=== PATIENT | female | born 1935 | race Caucasian/White ===

== ENCOUNTER 2019-01-22 14:26 | Observation (INO) | payer MEDICARE, MEDICAID ==
[~2019-01-22] VITALS: Ht 162.6 cm; Wt 90.9 kg
[2019-01-22 15:04] LABS: HEMOGLOBIN 10.7 g/dl (12.0-16.0); LYMPHOCYTES # (AUTO) 1.3 X10'3 (1.1-4.8); MEAN PLATELET VOLUME 10.8 FL (7.4-10.4)
[2019-01-22 15:05] LABS: BASOPHILS % (AUTO) 0.4 % (0-1); EOSINOPHILS % (AUTO) 0.4 % (0-6); HEMATOCRIT 31.7 % (35.0-45.0); LYMPHOCYTES % (AUTO) 18.4 % (21-51); MEAN CORPUSCULAR HEMOGLOBIN 29.2 PG (27.0-31.0); MEAN CORPUSCULAR HGB CONC 33.9 g/dL (33.0-36.5); MEAN CORPUSCULAR VOLUME 86.3 FL (78-98); MONOCYTES # (AUTO) 0.5 X10'3 (0-0.9); MONOCYTES % (AUTO) 7.5 % (2-12); NEUTROPHILS # (AUTO) 5.4 X10'3 (1.8-7.7); NEUTROPHILS % (AUTO) 73.3 % (42-75); PLATELET COUNT 90 X10'3 (140-440); RED BLOOD COUNT 3.67 X10'6 (4.20-5.60); RED CELL DISTRIBUTION WIDTH 13.5 % (11.5-14.5); WHITE BLOOD COUNT 7.3 X10'3 (4.5-11.0)
[2019-01-22 15:16] LABS: ALANINE AMINOTRANSFERASE 21 U/L (12-78); ALBUMIN 3.3 G/DL (3.4-5.0); ALBUMIN/GLOBULIN RATIO 0.9 (1.1-1.5); ALKALINE PHOSPHATASE 81 IU/L (46-116); ANION GAP 8 (8-16); ASPARTATE AMINO TRANSFERASE 19 U/L (10-37); BILIRUBIN,TOTAL 0.6 MG/DL (0.1-1.0); BLOOD UREA NITROGEN 13 MG/DL (7-18); BUN/CREATININE RATIO 14.6 (6.6-38.0); CALCIUM 9.2 MG/DL (8.5-10.1); CHLORIDE 103 MMOL/L (99-107); CREATININE 0.89 MG/DL (0.40-0.90); GLUCOSE 223 MG/DL (70-104); POTASSIUM 3.2 MMOL/L (3.5-5.1); SODIUM 141 MMOL/L (135-145); TOTAL CARBON DIOXIDE 30.3 MMOL/L (24-32); eGFR 61 ML/MIN
[2019-01-22 15:20] LABS: GIANT PLATELET FEW; LARGE PLATELETS MODERATE; PLATELET ESTIMATE DECREASED
[2019-01-22] MEDS ORDERED: metoclopramide 5 mg/ml inj IV ONE (15:40)
[2019-01-22] MEDS ORDERED: diphenhydrAMINE 50 mg/ml inj IV ONE (15:40)
[2019-01-22] MEDS ORDERED: normal saline 1000ML IV soln IVB ONE (15:40)
[2019-01-22] MEDS ORDERED: ketorolac tromethamine 15mg/ml inj. IV ONE (15:40)
[2019-01-22] MEDS ORDERED: iohexol 300mg/ml 100ml inj. ONE (15:43)
--- NOTE | 2019-01-22 15:48 | NUR ---
pt helped to bedside commode pt urinated approx 8 ml of urine send to lab.
[2019-01-22 15:58] LABS: CLARITY,URINE CLOUDY (Clear); COLOR,URINE YELLOW (Yellow); GLUCOSE, URINE NEGATIVE (Neg); KETONES,URINE TRACE mg/dl (Neg); LEUKOCYTE ESTERASE ,URINE LARGE (Neg); NITRITES, URINE NEGATIVE (Neg); OCCULT BLOOD,URINE LARGE (Neg); PROTEIN,URINE >=300 mg/dl (Neg); UROBILINOGEN,URINE 0.2 E.U/dL (0.2-1.0)
[2019-01-22 16:00] LABS: UA COLLECTION TYPE VOIDED
[2019-01-22 16:05] LABS: BACTERIA,URINE 2+ /HPF (Neg); MUCUS STRANDS NONE SEEN /LPF (Neg); RENAL CELLS, URINE MODERATE /HPF; SQUAMOUS EPITHELIAL CELL,UR FEW /LPF (FEW); WBC CLUMPS,URINE MANY /HPF (NEGATIVE); WBC,URINE TNTC /HPF (0-4)
--- NOTE | 2019-01-22 16:48 | NUR ---
PT BACK FROM CT
[2019-01-22] MEDS ORDERED: levoFLOXACIN-Levaquin 750MG/D5 150 ML IV ONE (16:50)
[2019-01-22] MEDS: normal saline 1000ml 1,000 ML IV SCH (16:58)
[2019-01-22] MEDS ORDERED: potassium CL 10mEq/100ml bag 100 ML IV PRN ×2 (17:00)
[2019-01-22] MEDS ORDERED: magnesium hydroxide 30ml (MOM) UD suspension PO PRN (17:00)
[2019-01-22] MEDS ORDERED: metoclopramide 5 mg/ml inj IV PRN (17:00)
[2019-01-22] MEDS ORDERED: potassium Cl 20 mEq SR tablet PO PRN (17:00)
[2019-01-22] MEDS ORDERED: magnesium Cl slow-release 64mg tablet PO PRN (17:00)
[2019-01-22] MEDS ORDERED: HYDROcodone/acetaminophen 5mg/325mg tablet PO PRN (17:00)
[2019-01-22] MEDS ORDERED: magnesium 2GM in 50ml NS 50 ML IV PRN (17:00)
[2019-01-22] MEDS ORDERED: mag hydrox/Alum hydrox/simeth 30ml oral suspension PO PRN (17:00)
[2019-01-22] MEDS ORDERED: ondansetron/PF 4mg/2ml inj IV PRN (17:00)
[2019-01-22] MEDS ORDERED: acetaminophen 325mg tablet PO PRN ×2 (17:00)
[2019-01-22] MEDS ORDERED: magnesium 4gm in 100ml NS 100 ML IV PRN (17:00)
[2019-01-22] MEDS ORDERED: morphine 4 MG/ML inj SYRINge IV ONE (17:15)
[2019-01-22] MEDS ORDERED: FURO-150 PO (18:15)
[2019-01-22] MEDS ORDERED: HYDR25TA4 PO (18:15)
[2019-01-22] MEDS ORDERED: GABA-769 PO (18:15)
[2019-01-22] MEDS ORDERED: SACU1TAB7 PO (18:15)
[2019-01-22] MEDS ORDERED: CLON-529 PO (18:15)
[2019-01-22] MEDS ORDERED: AMLO5TAB PO (18:15)
[2019-01-22] MEDS ORDERED: LANTUS SQ (18:15)
[2019-01-22] MEDS ORDERED: BENZ-16 PO (18:15)
[2019-01-22] MEDS ORDERED: MONT10TA24 PO (18:15)
[2019-01-22] MEDS ORDERED: ALBU8HFA PO (18:15)
[2019-01-22] MEDS ORDERED: POTA10CA44 PO (18:15)
[2019-01-22] MEDS ORDERED: INSU100V11 SQ (18:15)
[2019-01-22] MEDS ORDERED: FLUO20CA39 PO (18:15)
[2019-01-22] MEDS ORDERED: ROPI1TAB4 PO (18:15)
[2019-01-22] MEDS ORDERED: LOVA20TA2 PO (18:15)
[2019-01-22] MEDS ORDERED: ROFL500T7 PO (18:15)
[2019-01-22] MEDS ORDERED: METO-292 PO (18:15)
[2019-01-22] MEDS ORDERED: OXYC-150 PO (18:15)
[2019-01-22] MEDS ORDERED: PREG150C PO (18:15)
--- NOTE | 2019-01-22 18:19 | NUR ---
called the surg floor for the report.nurse in middle of report rgt now will call back.
[2019-01-22 20:00] VITALS: BP 186/76
[2019-01-22] MEDS ORDERED: dextrose 50%-water 50ml dispensing syringe IV PRN ×2 (20:25)
[2019-01-22] MEDS ORDERED: dextrose ORAL solution 15 GM/59 ML bottle PO PRN ×2 (20:25)
[2019-01-22] MEDS ORDERED: insulin Lispro (HumaLOG) vial - multi-dose SQ SCH (20:25)
[2019-01-22] MEDS ORDERED: oxyCODONE/APAP 10/325mg tablet PO PRN (20:25)
[2019-01-22] MEDS ORDERED: ipratropium/albuterol 3ml nebule NEB PRN (20:25)
[2019-01-22] MEDS ORDERED: benzonatate 100mg capsule PO PRN (20:25)
[2019-01-22] MEDS ORDERED: HYDROmorphone 1 mg/ml syringe IV PRN (20:25)
[2019-01-22] MEDS ORDERED: LORazepam 2 mg/ml vial IV ONE (20:25)
[2019-01-22] MEDS ORDERED: glucagon, human recombinant 1mg kit SUBCUT PRN (20:25)
[2019-01-22] MEDS ORDERED: MESSAGE TO PHARMACY PO ONE (20:25)
[2019-01-22] MEDS: pregabalin 75mg capsule PO SCH (20:57)
[2019-01-22] MEDS: metoclopramide 10mg tablet PO SCH (20:57)
[2019-01-22] MEDS: HYDROcodone/acetaminophen 10/325mg tab PO PRN (20:57)
[2019-01-22] MEDS ORDERED: cloNIDine 0.1 mg tablet PO SCH (21:00)
[2019-01-22] MEDS ORDERED: ROPINIRole 1mg tablet PO SCH (21:00)
[2019-01-22] MEDS ORDERED: montelukast 10mg tablet PO SCH (21:00)
[2019-01-22] MEDS ORDERED: LOVASTATIN PO SCH (21:00)
[2019-01-22] MEDS ORDERED: temazepam 15mg capsule PO PRN (21:00)
[2019-01-22] MEDS ORDERED: atorvastatin 10mg tablet PO SCH (21:00)
[2019-01-22] MEDS ORDERED: non-formulary drug (Pregabalin (Lyrica) 1 CAP) PO SCH (21:00)
[2019-01-22] MEDS ORDERED: insulin glargine (Lantus) pen - multi-dose SQ SCH ×2 (21:00)
[2019-01-22 21:50] LABS: HEMOGLOBIN A1C 7.7 % (4.5-6.2)
[2019-01-22] MEDS: ipratropium/albuterol 3ml nebule NEB SCH (22:49)
--- NOTE | 2019-01-22 23:30 | NUR ---
Patient in room [facility] 359. I have received report from AIDAN Huynh RN and had the opportunity to ask questions and assume patient care. Addendum: 01/22/19 at 2330 by Rebekah Sood RN Amended: Links added.
[2019-01-23] VITALS: BP 120/51
[2019-01-23] MEDS: normal saline 1000ml 1,000 ML IV SCH (02:58)
[2019-01-23] MEDS: HYDROcodone/acetaminophen 10/325mg tab PO PRN ×2 (06:05→15:35)
--- NOTE | 2019-01-23 06:27 | NUR ---
Problems reprioritized. Patient report given, questions answered & plan of care reviewed with BILLY Avendano. Addendum: 01/23/19 at 0628 by Rebekah Sood RN Amended: Links added.
[2019-01-23 06:31] LABS: ALBUMIN 2.6 G/DL (3.4-5.0); ANION GAP 7 (8-16); BLOOD UREA NITROGEN 10 MG/DL (7-18); BUN/CREATININE RATIO 10.6 (6.6-38.0); CHLORIDE 108 MMOL/L (99-107); CREATININE 0.94 MG/DL (0.40-0.90); GLUCOSE 181 MG/DL (70-104); MAGNESIUM 1.4 MG/DL (1.5-2.4); POTASSIUM 3.1 MMOL/L (3.5-5.1); SODIUM 145 MMOL/L (135-145); TOTAL CARBON DIOXIDE 30.3 MMOL/L (24-32); eGFR 57 ML/MIN
[2019-01-23 06:32] LABS: EOSINOPHILS # (AUTO) 0.1 X10'3 (0-0.9); LYMPHOCYTES # (AUTO) 1.1 X10'3 (1.1-4.8); MEAN CORPUSCULAR HEMOGLOBIN 29.8 PG (27.0-31.0); MONOCYTES # (AUTO) 0.5 X10'3 (0-0.9); NEUTROPHILS # (AUTO) 2.7 X10'3 (1.8-7.7); RED CELL DISTRIBUTION WIDTH 13.4 % (11.5-14.5)
[2019-01-23 06:35] LABS: BASOPHILS % (AUTO) 0.9 % (0-1); HEMATOCRIT 26.8 % (35.0-45.0); HEMOGLOBIN 9.3 g/dl (12.0-16.0); LYMPHOCYTES % (AUTO) 24.1 % (21-51); MEAN CORPUSCULAR HGB CONC 34.6 g/dL (33.0-36.5); MEAN CORPUSCULAR VOLUME 86.1 FL (78-98); MEAN PLATELET VOLUME 11.4 FL (7.4-10.4); MONOCYTES % (AUTO) 11.1 % (2-12); NEUTROPHILS % (AUTO) 61.9 % (42-75); PLATELET COUNT 67 X10'3 (140-440); RED BLOOD COUNT 3.11 X10'6 (4.20-5.60); WHITE BLOOD COUNT 4.4 X10'3 (4.5-11.0)
[2019-01-23] MEDS: metoclopramide 10mg tablet PO SCH ×3 (07:18→16:33)
[2019-01-23] MEDS: pregabalin 75mg capsule PO SCH ×2 (07:18→12:09)
[2019-01-23 07:20] VITALS: BP 126/90
[2019-01-23] MEDS: potassium Cl 20 mEq SR tablet PO PRN ×3 (07:24→16:33)
[2019-01-23] MEDS: ipratropium/albuterol 3ml nebule NEB SCH ×3 (07:31→15:52)
[2019-01-23 07:37] LABS: LARGE PLATELETS FEW; PLATELET ESTIMATE DECREASED
[2019-01-23] MEDS ORDERED: K and/or MAG REPLACEMENT MC SCH (08:00)
[2019-01-23] MEDS ORDERED: amLODIPine 5mg tablet PO SCH (08:00)
[2019-01-23] MEDS ORDERED: roflumilast 500mcg tablet PO SCH (08:00)
[2019-01-23] MEDS ORDERED: non-formulary drug (Amlodipine Besylate 1 TABLET) PO SCH (08:00)
[2019-01-23] MEDS ORDERED: FLUoxetine 20mg capsule PO SCH (08:00)
[2019-01-23] MEDS ORDERED: sacubitril/valsartan 24mg-26mg tablet PO SCH (08:00)
[2019-01-23] MEDS ORDERED: non-formulary drug (Roflumilast (Daliresp) 1 TAB) PO SCH (08:00)
[2019-01-23] MEDS ORDERED: enoxaparin 40mg/0.4ml syringe SQ SCH (08:00)
[2019-01-23] MEDS ORDERED: levoFLOXACIN-Levaquin 500mg/D5 100 ML IV SCH (08:00)
[2019-01-23] MEDS ORDERED: potassium chloride 10mEq CAPSULE.SA PO SCH (08:00)
[2019-01-23] MEDS ORDERED: furosemide 20MG tablet PO SCH (08:00)
[2019-01-23 11:16] VITALS: BP 162/68
--- NOTE | 2019-01-23 12:04 | NUR ---
DM Consult: Pt admit w/ N/V and abdominal pain 3 days. Hx R hip pain and chronic pain syndrome. Pending R hip testing at this time. Hx T2DM A1C 7.7. Pt GI symptoms persist either UTI vs R hip pain per MD note. Pt will need DM ed once more appropriate prior to d/c as well as advancement to carb controlled diet from regular pending PO hx. Addendum: 01/23/19 at [address] Amended: Links added.
[2019-01-23] MEDS ORDERED: LORazepam 2 mg/ml vial IV ONE (14:15)
[2019-01-23] MEDS ORDERED: potassium chloride 10mEq ER tablet PO SCH (14:35)
[2019-01-23] MEDS ORDERED: LEVO250T58 PO (16:47)
[2019-01-23] MEDS ORDERED: OXYC-150 PO (16:47)
--- NOTE | 2019-01-23 17:30 | NUR ---
Patient discharged home. Stable and appropriate. All belongings taken from room. IV removed, template checker removed. Discharge instructions given and reviewed with patient and daughter. Prescription given to patient.
[2019-01-23] MEDS ORDERED: lactobacillus rhamnosus 10,000 MMU CELLS/CAPSULE PO SCH (20:00)
== END 2019-01-23 17:24 | disposition home health service (06) ==
LOC: ER 14:26 → SUR 3N 17:24
PROVIDERS: ADMIT Family Medicine; ATTEND Family Medicine
DX: M25.551 Pain in right hip (principal); E87.6 Hypokalemia; I11.0 Hypertensive heart disease with heart failure; I50.9 Heart failure, unspecified; E78.5 Hyperlipidemia, unspecified; J44.9 Chronic obstructive pulmonary disease, unspecified; F40.240 Claustrophobia; R01.1 Cardiac murmur, unspecified; K57.30 Diverticulosis of large intestine without perforation or abscess without bleeding; D64.9 Anemia, unspecified; M54.5 Low back pain; E11.9 Type 2 diabetes mellitus without complications; Z87.891 Personal history of nicotine dependence
CPT/HCPCS: 36415; 72148; 73700; 74177; 80048; 80053; 81001; 82948; 83036; 83735; 85025; 85610; 87081; 87088; 94640; 94760; 96361; 96365; 96366; 96372; 96375; 96376; 97116; 97161; 97530; 99284; G0378; J1200; J1815; J1885; J1956; J2060; J2270; J2765; J7030; Q9967; J1650; J8597

== ENCOUNTER 2019-04-22 12:00 | Inpatient (IN) | payer MEDICARE, MEDICAID ==
[~2019-04-22] VITALS: Ht 162.6 cm; Wt 94.7 kg
[~2019-04-22 12:00] MED LIST: ALBU8HFA PO; AMLO5TAB PO; BENZ-16 PO; CLON-529 PO; FLUO20CA39 PO; FURO-150 PO; GABA-769 PO; HYDR25TA4 PO; INSU100V11 SQ; LANTUS SQ; LOVA20TA2 PO; METO-292 PO; MONT10TA24 PO; OXYC-150 PO; POTA10CA44 PO; PREG150C PO; ROFL500T7 PO; ROPI1TAB4 PO; SACU1TAB7 PO
[2019-04-22 12:57] LABS: EOSINOPHILS % (AUTO) 0.3 % (0-6); HEMOGLOBIN 10.5 g/dl (12.0-16.0); MONOCYTES # (AUTO) 0.6 X10'3 (0-0.9); NEUTROPHILS # (AUTO) 8.8 X10'3 (1.8-7.7); RED CELL DISTRIBUTION WIDTH 13.5 % (11.5-14.5)
[2019-04-22 12:58] LABS: BASOPHILS % (AUTO) 0.1 % (0-1); HEMATOCRIT 30.5 % (35.0-45.0); LYMPHOCYTES # (AUTO) 1.5 X10'3 (1.1-4.8); LYMPHOCYTES % (AUTO) 13.4 % (21-51); MEAN CORPUSCULAR HEMOGLOBIN 29.9 PG (27.0-31.0); MEAN CORPUSCULAR HGB CONC 34.4 g/dL (33.0-36.5); MEAN CORPUSCULAR VOLUME 87.1 FL (78-98); MEAN PLATELET VOLUME 10.9 FL (7.4-10.4); MONOCYTES % (AUTO) 5.4 % (2-12); NEUTROPHILS % (AUTO) 80.8 % (42-75); PLATELET COUNT 71 X10'3 (140-440); WHITE BLOOD COUNT 10.9 X10'3 (4.5-11.0)
[2019-04-22 13:01] LABS: PARTIAL THROMBOPLASTIN TIME 40 SECONDS (22-32)
[2019-04-22 13:05] LABS: ALANINE AMINOTRANSFERASE 24 U/L (12-78); ALBUMIN 3.1 G/DL (3.4-5.0); ALBUMIN/GLOBULIN RATIO 0.7 (1.1-1.5); ALKALINE PHOSPHATASE 109 IU/L (46-116); ANION GAP 11 (8-16); ASPARTATE AMINO TRANSFERASE 34 U/L (10-37); BILIRUBIN,TOTAL 0.6 MG/DL (0.1-1.0); BLOOD UREA NITROGEN 32 MG/DL (7-18); BUN/CREATININE RATIO 23.7 (6.6-38.0); CALCIUM 9.5 MG/DL (8.5-10.1); CHLORIDE 100 MMOL/L (99-107); CREATININE 1.35 MG/DL (0.40-0.90); GLUCOSE 174 MG/DL (70-104); POTASSIUM 3.4 MMOL/L (3.5-5.1); SODIUM 140 MMOL/L (135-145); TOTAL CARBON DIOXIDE 28.7 MMOL/L (24-32); TOTAL PROTEIN 7.7 G/DL (6.4-8.2); eGFR 38 ML/MIN
[2019-04-22 13:13] LABS: TOTAL CELLS COUNTED 100
[2019-04-22 13:14] LABS: LARGE PLATELETS FEW; PLATELET ESTIMATE DECREASED
[2019-04-22] MEDS ORDERED: furosemide 10 MG/1 ML 10ml inj IV ONE (13:20)
[2019-04-22] MEDS ORDERED: CefTRIAXone/D5W-Rocephin 1gm 50 ML IV ONE (13:30)
[2019-04-22] MEDS ORDERED: azithromycin/NS 500mg/250ml 250 ML IV ONE (13:30)
[2019-04-22] MEDS ORDERED: morphine 2 MG/ML inj. syringe IV PRN ×2 (13:45)
[2019-04-22] MEDS: furosemide 20 MG/2 ML vial IV SCH ×2 (13:45→23:11)
[2019-04-22] MEDS ORDERED: acetaminophen 325mg tablet PO PRN ×2 (13:45)
[2019-04-22] MEDS ORDERED: mag hydrox/Alum hydrox/simeth 30ml oral suspension PO PRN (13:45)
[2019-04-22] MEDS ORDERED: ondansetron/PF 4mg/2ml inj IV PRN (13:45)
[2019-04-22] MEDS ORDERED: magnesium hydroxide 30ml (MOM) UD suspension PO PRN (13:45)
--- NOTE | 2019-04-22 13:59 | NUR ---
MICHAEL: GRANDDAUGHTER: CELL: [phone] HOME: [phone]
[2019-04-22 14:15] LABS: CLARITY,URINE CLEAR (Clear); COLOR,URINE YELLOW (Yellow); GLUCOSE, URINE NEGATIVE (Neg); KETONES,URINE NEGATIVE (Neg); LEUKOCYTE ESTERASE ,URINE NEGATIVE (Neg); NITRITES, URINE NEGATIVE (Neg); OCCULT BLOOD,URINE MODERATE (Neg); PH,URINE 5.5 (4.8-8.0); PROTEIN,URINE NEGATIVE (Neg); UROBILINOGEN,URINE 0.2 E.U/dL (0.2-1.0)
[2019-04-22 14:23] LABS: BACTERIA,URINE NONE SEEN /HPF (Neg); MUCUS STRANDS NONE SEEN /LPF (Neg); RBC,URINE 0-2 /HPF (0-2); SQUAMOUS EPITHELIAL CELL,UR NONE SEEN /LPF (FEW); UA COLLECTION TYPE CLN CATCH MIDSTREAM; WBC,URINE 0-4 /HPF (0-4)
--- NOTE | 2019-04-22 14:30 | NUR ---
Patient in room PCU 3025. I have received report from Dania CERVANTES and had the opportunity to ask questions and assume patient care.
[2019-04-22] MEDS: HYDROcodone/acetaminophen 5mg/325mg tablet PO PRN ×2 (15:43→23:07)
[2019-04-22 18:00] VITALS: BP 148/58
--- NOTE | 2019-04-22 18:13 | NUR ---
Pt. c/o SOB, heaviness in chest. Also stated that she has hx of DM2. Pagejailyn ARCE PAGER ID: [phone] MESSAGE: [id number] Kee Espinal admit from ED. C/o SOB, heaviness in chest. Hx of DM2. No orders for Breathing tx or Hyperglycemia protocol. Pls. advise. Laci [id number]
[2019-04-22 18:50] VITALS: BP 159/56
--- NOTE | 2019-04-22 19:01 | NUR ---
Patient in room PCU 9614J. I have received report from BILLY Escobar and had the opportunity to ask questions and assume patient care. Patient denies CP, n/v, dizzines, and rated pain 5/10. Medication reconciliation needs to be done.
--- NOTE | 2019-04-22 19:01 | NUR ---
Problems reprioritized. Patient report given, questions answered & plan of care reviewed with Jean Carlos CERVANTES.
--- NOTE | 2019-04-22 20:31 | NUR ---
PAGER ID: [phone] MESSAGE: FYEvan: America Espinal, Room 325A. Medication Reconciliation is done. The patient is also requesting an insomnia medication and a nasal spray. Thank you, Jean Carlos
[2019-04-22] MEDS ORDERED: dextrose ORAL solution 15 GM/59 ML bottle PO PRN ×2 (20:50)
[2019-04-22] MEDS ORDERED: dextrose 50%-water 50ml dispensing syringe IV PRN ×2 (20:50)
[2019-04-22] MEDS ORDERED: MESSAGE TO PHARMACY PO ONE (20:50)
[2019-04-22] MEDS ORDERED: glucagon, human recombinant 1mg kit SUBCUT PRN (20:50)
[2019-04-22 22:00] VITALS: BP 140/41
[2019-04-22 22:35] LABS: HEMOGLOBIN A1C 6.8 % (4.5-6.2)
[2019-04-22] MEDS: ROPINIRole 1mg tablet PO SCH (23:04)
[2019-04-22] MEDS: cloNIDine 0.1 mg tablet PO SCH (23:05)
[2019-04-22] MEDS: metoclopramide 10mg tablet PO SCH (23:05)
[2019-04-22] MEDS: Melatonin 3mg tablet PO SCH (23:05)
[2019-04-22] MEDS: oxymetazoline 15 ML nasal spray NS SCH (23:10)
[2019-04-22] MEDS: insulin glargine (Lantus) pen - multi-dose SQ SCH (23:33)
[2019-04-23] VITALS (10 sets, daily range): BP systolic 114–174; BP diastolic 38–61
--- NOTE | 2019-04-23 00:43 | NUR ---
Per Iram in pharmacy, via Fax: " Please check if the patient's family can bring in the patient's own medication. If not please have the physician discontinue own medication order. It's considered a med error every time the medication is not given." Patient will ask her daughter today to bring gabapentin enacarbil and sacubitril/valsartan.
--- NOTE | 2019-04-23 06:47 | NUR ---
Patient in room PCU 3025. I have received report from BILLY Evangelista and had the opportunity to ask questions and assume patient care.
--- NOTE | 2019-04-23 06:47 | NUR ---
Problems reprioritized. Patient report given, questions answered & plan of care reviewed with BILLY Andrews. Patient stable at shift change.
[2019-04-23] MEDS: nystatin 15 GM powder TP SCH ×2 (07:54→20:00)
[2019-04-23] MEDS: amLODIPine 5mg tablet PO SCH (07:54)
[2019-04-23] MEDS: furosemide 20 MG/2 ML vial IV SCH ×2 (07:54→19:59)
[2019-04-23] MEDS: azithromycin 250mg tablet PO SCH (07:55)
[2019-04-23] MEDS: metoclopramide 10mg tablet PO SCH ×4 (07:55→21:18)
[2019-04-23] MEDS: CefTRIAXone/D5W-Rocephin 1gm 50 ML IV SCH (07:55)
[2019-04-23] MEDS: potassium chloride 10mEq ER tablet PO SCH (07:56)
[2019-04-23] MEDS: pregabalin 75mg capsule PO SCH ×3 (07:56→21:18)
[2019-04-23] MEDS: FLUoxetine 20mg capsule PO SCH (07:56)
[2019-04-23] MEDS: roflumilast 500mcg tablet PO SCH (07:57)
[2019-04-23] MEDS: oxymetazoline 15 ML nasal spray NS SCH ×2 (07:57→20:16)
[2019-04-23] MEDS: enoxaparin 40mg/0.4ml syringe SUBCUT SCH (07:58)
[2019-04-23] MEDS ORDERED: sacubitril/valsartan 49mg-51mg tablet PO SCH (08:00)
--- NOTE | 2019-04-23 08:55 | NUR ---
Pt c/o SOB and history PAGER ID: [phone] MESSAGE: [id number] Kee Espinal C/o SOB and hx of asthma, pt would like breathing txs, none ordered. Please advise. Humaira [id number] Addendum: 04/23/19 at 0857 by Deirdre Morton RN received return call, order received for RT eval/tx. Addendum: 04/23/19 at 0859 by Deirdre Morton RN Notified respiratory via page of new order for Eval/Tx.
--- NOTE | 2019-04-23 11:20 | NUR ---
Dr. Thompson at bedside. New orders received.
[2019-04-23] MEDS: oxyCODONE/APAP 10/325mg tablet PO PRN ×2 (11:56→20:02)
[2019-04-23] MEDS: ipratropium/albuterol 3ml nebule NEB SCH ×3 (12:00→19:39)
[2019-04-23 13:03] LABS: BASOPHILS % (AUTO) 0.2 % (0-1); EOSINOPHILS % (AUTO) 0.8 % (0-6); HEMATOCRIT 27.8 % (35.0-45.0); HEMOGLOBIN 9.6 g/dl (12.0-16.0); LYMPHOCYTES # (AUTO) 1.2 X10'3 (1.1-4.8); MEAN CORPUSCULAR HEMOGLOBIN 29.9 PG (27.0-31.0); MONOCYTES # (AUTO) 0.4 X10'3 (0-0.9); RED BLOOD COUNT 3.22 X10'6 (4.20-5.60); RED CELL DISTRIBUTION WIDTH 13.5 % (11.5-14.5)
[2019-04-23 13:04] LABS: EOSINOPHILS # (AUTO) 0.1 X10'3 (0-0.9); LYMPHOCYTES % (AUTO) 18.5 % (21-51); MEAN CORPUSCULAR HGB CONC 34.5 g/dL (33.0-36.5); MEAN CORPUSCULAR VOLUME 86.6 FL (78-98); MEAN PLATELET VOLUME 10.8 FL (7.4-10.4); MONOCYTES % (AUTO) 6.3 % (2-12); NEUTROPHILS # (AUTO) 4.7 X10'3 (1.8-7.7); NEUTROPHILS % (AUTO) 74.2 % (42-75); PLATELET COUNT 68 X10'3 (140-440); WHITE BLOOD COUNT 6.3 X10'3 (4.5-11.0)
[2019-04-23 13:05] LABS: ALBUMIN 2.7 G/DL (3.4-5.0); ANION GAP 10 (8-16); BLOOD UREA NITROGEN 33 MG/DL (7-18); BUN/CREATININE RATIO 25.6 (6.6-38.0); CALCIUM 8.4 MG/DL (8.5-10.1); CHLORIDE 102 MMOL/L (99-107); CREATININE 1.29 MG/DL (0.40-0.90); GLUCOSE 200 MG/DL (70-104); SODIUM 143 MMOL/L (135-145); TOTAL CARBON DIOXIDE 30.7 MMOL/L (24-32); eGFR 40 ML/MIN
--- NOTE | 2019-04-23 13:15 | NUR ---
Critical K 3.[address] Thompson notified, order received to replace per protocol.
[2019-04-23] MEDS ORDERED: potassium CL 10mEq/100ml bag 100 ML IV PRN (13:20)
[2019-04-23] MEDS ORDERED: potassium Cl 20 mEq SR tablet PO PRN (13:20)
[2019-04-23] MEDS: benzonatate 100mg capsule PO PRN (13:23)
[2019-04-23 13:27] LABS: LARGE PLATELETS FEW; PLATELET ESTIMATE DECREASED
[2019-04-23] MEDS: insulin Lispro (HumaLOG) vial - multi-dose SQ SCH ×2 (14:41→19:27)
[2019-04-23] MEDS: potassium Cl 20 mEq SR tablet PO PRN ×2 (14:42→19:59)
--- NOTE | 2019-04-23 18:15 | NUR ---
Problems reprioritized. Patient report given, questions answered & plan of care reviewed with BILLY Sandhu.
--- NOTE | 2019-04-23 18:30 | NUR ---
Patient in room PCU 3025. I have received report from Juliana CERVANTES and had the opportunity to ask questions and assume patient care.
[2019-04-23] MEDS: sacubitril/valsartan 24mg-26mg tablet PO SCH (19:34)
[2019-04-23] MEDS: methylPREDNISolone sod succ/PF 40mg inj. IV SCH (19:59)
[2019-04-23] MEDS: lactobacillus rhamnosus 10,000 MMU CELLS/CAPSULE PO SCH (20:00)
[2019-04-23] MEDS: insulin glargine (Lantus) pen - multi-dose SQ SCH (21:17)
[2019-04-23] MEDS: gabapentin 300mg capsule PO SCH (21:18)
[2019-04-23] MEDS: cloNIDine 0.1 mg tablet PO SCH (21:18)
[2019-04-23] MEDS: ROPINIRole 1mg tablet PO SCH (21:18)
[2019-04-23] MEDS: atorvastatin 10mg tablet PO SCH (21:18)
[2019-04-23] MEDS: Melatonin 3mg tablet PO SCH (21:19)
[2019-04-24] VITALS (8 sets, daily range): BP systolic 118–142; BP diastolic 41–56
[2019-04-24] MEDS: potassium Cl 20 mEq SR tablet PO PRN (00:30)
[2019-04-24 05:36] LABS: BASOPHILS % (AUTO) 0.1 % (0-1); HEMOGLOBIN 9.6 g/dl (12.0-16.0); LYMPHOCYTES # (AUTO) 0.5 X10'3 (1.1-4.8); MONOCYTES # (AUTO) 0.1 X10'3 (0-0.9); NEUTROPHILS # (AUTO) 3.2 X10'3 (1.8-7.7); NEUTROPHILS % (AUTO) 85.2 % (42-75); RED CELL DISTRIBUTION WIDTH 13.3 % (11.5-14.5); WHITE BLOOD COUNT 3.7 X10'3 (4.5-11.0)
[2019-04-24 05:40] LABS: EOSINOPHILS % (AUTO) 0.1 % (0-6); MEAN CORPUSCULAR HEMOGLOBIN 29.8 PG (27.0-31.0); MEAN CORPUSCULAR HGB CONC 34.4 g/dL (33.0-36.5); MEAN CORPUSCULAR VOLUME 86.8 FL (78-98); MEAN PLATELET VOLUME 10.8 FL (7.4-10.4); MONOCYTES % (AUTO) 1.6 % (2-12); PLATELET COUNT 69 X10'3 (140-440); RED BLOOD COUNT 3.23 X10'6 (4.20-5.60)
[2019-04-24 05:44] LABS: ALBUMIN 2.6 G/DL (3.4-5.0); ANION GAP 10 (8-16); BLOOD UREA NITROGEN 40 MG/DL (7-18); BUN/CREATININE RATIO 25.5 (6.6-38.0); CALCIUM 8.4 MG/DL (8.5-10.1); CHLORIDE 103 MMOL/L (99-107); CREATININE 1.57 MG/DL (0.40-0.90); GLUCOSE 294 MG/DL (70-104); POTASSIUM 4.7 MMOL/L (3.5-5.1); SODIUM 141 MMOL/L (135-145); TOTAL CARBON DIOXIDE 28.4 MMOL/L (24-32); eGFR 32 ML/MIN
--- NOTE | 2019-04-24 06:11 | NUR ---
Problems reprioritized. Patient report given, questions answered & plan of care reviewed with Harriet CERVANTES.
--- NOTE | 2019-04-24 06:16 | NUR ---
Patient in room PCU 3025. I have received report from BILLY Sandhu and had the opportunity to ask questions and assume patient care.
[2019-04-24] MEDS: ipratropium/albuterol 3ml nebule NEB SCH ×4 (06:48→19:24)
[2019-04-24] MEDS: CefTRIAXone/D5W-Rocephin 1gm 50 ML IV SCH (07:19)
[2019-04-24] MEDS: oxymetazoline 15 ML nasal spray NS SCH ×2 (07:28→21:04)
[2019-04-24] MEDS: nystatin 15 GM powder TP SCH ×2 (07:29→20:58)
[2019-04-24] MEDS: potassium chloride 10mEq ER tablet PO SCH (07:30)
[2019-04-24] MEDS: furosemide 20 MG/2 ML vial IV SCH ×2 (07:30→20:56)
[2019-04-24] MEDS: pantoprazole 40 MG vial IV SCH (07:30)
[2019-04-24] MEDS: roflumilast 500mcg tablet PO SCH (07:30)
[2019-04-24] MEDS: amLODIPine 5mg tablet PO SCH (07:30)
[2019-04-24] MEDS: methylPREDNISolone sod succ/PF 40mg inj. IV SCH ×2 (07:30→20:56)
[2019-04-24] MEDS: sacubitril/valsartan 24mg-26mg tablet PO SCH ×2 (07:30→20:58)
[2019-04-24] MEDS: FLUoxetine 20mg capsule PO SCH (07:31)
[2019-04-24] MEDS: metoclopramide 10mg tablet PO SCH ×4 (07:31→20:58)
[2019-04-24] MEDS: pregabalin 75mg capsule PO SCH ×3 (07:31→20:57)
[2019-04-24] MEDS: azithromycin 250mg tablet PO SCH (07:31)
[2019-04-24] MEDS: lactobacillus rhamnosus 10,000 MMU CELLS/CAPSULE PO SCH ×2 (07:31→20:57)
[2019-04-24] MEDS: enoxaparin 40mg/0.4ml syringe SUBCUT SCH (07:36)
[2019-04-24] MEDS: oxyCODONE/APAP 10/325mg tablet PO PRN ×3 (07:43→21:12)
[2019-04-24 07:49] LABS: GIANT PLATELET FEW; LARGE PLATELETS MODERATE; PLATELET ESTIMATE DECREASED
[2019-04-24] MEDS: insulin Lispro (HumaLOG) vial - multi-dose SQ SCH ×4 (09:31→21:28)
--- NOTE | 2019-04-24 18:33 | NUR ---
Patient in room PCU 3025. I have received report from Harriet CERVANTES and Addie CERVANTES and had the opportunity to ask questions and assume patient care.
--- NOTE | 2019-04-24 18:40 | NUR ---
Problems reprioritized. Patient report given, questions answered & plan of care reviewed with BILLY Gilmore.
[2019-04-24] MEDS: ROPINIRole 1mg tablet PO SCH (20:57)
[2019-04-24] MEDS: Melatonin 3mg tablet PO SCH (20:57)
[2019-04-24] MEDS: gabapentin 300mg capsule PO SCH (20:57)
[2019-04-24] MEDS: cloNIDine 0.1 mg tablet PO SCH (20:57)
[2019-04-24] MEDS: atorvastatin 10mg tablet PO SCH (20:59)
[2019-04-24] MEDS: insulin glargine (Lantus) pen - multi-dose SQ SCH (21:25)
[2019-04-25 02:00] VITALS: BP 118/38
[2019-04-25 05:01] LABS: BASOPHILS % (AUTO) 0.1 % (0-1); EOSINOPHILS % (AUTO) 0 % (0-6); LYMPHOCYTES # (AUTO) 0.5 X10'3 (1.1-4.8); MEAN CORPUSCULAR VOLUME 87.6 FL (78-98); MONOCYTES # (AUTO) 0.1 X10'3 (0-0.9); NEUTROPHILS # (AUTO) 6.5 X10'3 (1.8-7.7); PLATELET COUNT 80 X10'3 (140-440); RED BLOOD COUNT 3.04 X10'6 (4.20-5.60); WHITE BLOOD COUNT 7.2 X10'3 (4.5-11.0)
[2019-04-25 05:02] LABS: HEMATOCRIT 26.6 % (35.0-45.0); HEMOGLOBIN 9.1 g/dl (12.0-16.0); MEAN CORPUSCULAR HEMOGLOBIN 29.9 PG (27.0-31.0); MEAN CORPUSCULAR HGB CONC 34.1 g/dL (33.0-36.5); MEAN PLATELET VOLUME 11.4 FL (7.4-10.4); MONOCYTES % (AUTO) 1.5 % (2-12); NEUTROPHILS % (AUTO) 91.4 % (42-75); RED CELL DISTRIBUTION WIDTH 13.5 % (11.5-14.5)
[2019-04-25 05:06] LABS: ALBUMIN 2.5 G/DL (3.4-5.0); ANION GAP 10 (8-16); BLOOD UREA NITROGEN 60 MG/DL (7-18); BUN/CREATININE RATIO 20.9 (6.6-38.0); CALCIUM 8.8 MG/DL (8.5-10.1); CHLORIDE 99 MMOL/L (99-107); CREATININE 2.87 MG/DL (0.40-0.90); GLUCOSE 352 MG/DL (70-104); POTASSIUM 5.1 MMOL/L (3.5-5.1); SODIUM 136 MMOL/L (135-145); TOTAL CARBON DIOXIDE 27.4 MMOL/L (24-32); eGFR 16 ML/MIN
--- NOTE | 2019-04-25 06:28 | NUR ---
Patient in room PCU 3025. I have received report from Deirdre and had the opportunity to ask questions and assume patient care.
--- NOTE | 2019-04-25 06:31 | NUR ---
Problems reprioritized. Patient report given, questions answered & plan of care reviewed with Jackie CERVANTES.
[2019-04-25] MEDS: ipratropium/albuterol 3ml nebule NEB SCH ×4 (06:52→19:35)
[2019-04-25 06:54] LABS: GIANT PLATELET FEW; LARGE PLATELETS MODERATE; PLATELET ESTIMATE DECREASED
[2019-04-25 07:00] VITALS: BP 138/64
[2019-04-25] MEDS: roflumilast 500mcg tablet PO SCH (07:48)
[2019-04-25] MEDS: amLODIPine 5mg tablet PO SCH (07:48)
[2019-04-25] MEDS: FLUoxetine 20mg capsule PO SCH (07:49)
[2019-04-25] MEDS: sacubitril/valsartan 24mg-26mg tablet PO SCH ×2 (07:49→20:00)
[2019-04-25] MEDS: lactobacillus rhamnosus 10,000 MMU CELLS/CAPSULE PO SCH ×2 (07:49→20:01)
[2019-04-25] MEDS: metoclopramide 10mg tablet PO SCH ×4 (07:50→20:00)
[2019-04-25] MEDS: pregabalin 75mg capsule PO SCH ×3 (07:50→20:00)
[2019-04-25] MEDS: azithromycin 250mg tablet PO SCH (07:50)
[2019-04-25] MEDS: potassium chloride 10mEq ER tablet PO SCH (07:50)
[2019-04-25] MEDS: nystatin 15 GM powder TP SCH ×2 (07:51→20:03)
[2019-04-25] MEDS: methylPREDNISolone sod succ/PF 40mg inj. IV SCH ×2 (07:51→20:00)
[2019-04-25] MEDS: furosemide 20 MG/2 ML vial IV SCH (07:51)
[2019-04-25] MEDS: pantoprazole 40 MG vial IV SCH (07:51)
[2019-04-25] MEDS: CefTRIAXone/D5W-Rocephin 1gm 50 ML IV SCH (07:52)
[2019-04-25] MEDS: enoxaparin 30mg/0.3ml syringe SUBCUT SCH ×2 (07:52→08:00)
[2019-04-25] MEDS: oxymetazoline 15 ML nasal spray NS SCH ×2 (07:52→20:00)
[2019-04-25] MEDS: insulin Lispro (HumaLOG) vial - multi-dose SQ SCH ×3 (09:33→19:45)
[2019-04-25] MEDS: oxyCODONE/APAP 10/325mg tablet PO PRN ×2 (09:38→20:01)
[2019-04-25 11:00] VITALS: BP 137/84
--- NOTE | 2019-04-25 12:21 | NUR ---
MD notified regarding platelet count with orders to hold Lovenox. stated the patient is not discharging today and ordered to re-eval with PT r/t weakness.
[2019-04-25 18:00] VITALS: BP 142/56
--- NOTE | 2019-04-25 18:23 | NUR ---
Problems reprioritized. Patient report given, questions answered & plan of care reviewed with Deirdre.
--- NOTE | 2019-04-25 18:33 | NUR ---
Problems reprioritized. Patient report given, questions answered & plan of care reviewed with Julia
--- NOTE | 2019-04-25 19:02 | NUR ---
Patient in room PCU 3025. I have received report from Vilma CERVANTES and had the opportunity to ask questions and assume patient care.
[2019-04-25] MEDS: normal saline 1000ml 1,000 ML IV SCH (19:45)
[2019-04-25] MEDS: gabapentin 300mg capsule PO SCH (20:00)
[2019-04-25] MEDS: ROPINIRole 1mg tablet PO SCH (20:00)
[2019-04-25] MEDS: cloNIDine 0.1 mg tablet PO SCH (20:00)
[2019-04-25] MEDS: atorvastatin 10mg tablet PO SCH (20:01)
[2019-04-25] MEDS: Melatonin 3mg tablet PO SCH (20:01)
[2019-04-25] MEDS: insulin glargine (Lantus) pen - multi-dose SQ SCH (21:40)
[2019-04-25 22:00] VITALS: BP 108/42
[2019-04-26 02:00] VITALS: BP 121/46
--- NOTE | 2019-04-26 03:52 | NUR ---
Patient has not voided this shift yet and her urine on day shift in the wick canister is dark jerman so encouraged patient to drink some PO fluids and educated her about her renal function and she is compliant with trying to increase her water intake.
[2019-04-26 04:14] LABS: EOSINOPHILS % (AUTO) 0 % (0-6); HEMATOCRIT 26.8 % (35.0-45.0); HEMOGLOBIN 9.2 g/dl (12.0-16.0); MEAN CORPUSCULAR HEMOGLOBIN 29.8 PG (27.0-31.0); MONOCYTES # (AUTO) 0.1 X10'3 (0-0.9); RED BLOOD COUNT 3.08 X10'6 (4.20-5.60); WHITE BLOOD COUNT 7.6 X10'3 (4.5-11.0)
[2019-04-26 04:16] LABS: BASOPHILS % (AUTO) 0 % (0-1); LYMPHOCYTES # (AUTO) 0.4 X10'3 (1.1-4.8); LYMPHOCYTES % (AUTO) 4.7 % (21-51); MEAN CORPUSCULAR HGB CONC 34.2 g/dL (33.0-36.5); MEAN CORPUSCULAR VOLUME 87.1 FL (78-98); MEAN PLATELET VOLUME 10.6 FL (7.4-10.4); MONOCYTES % (AUTO) 1.4 % (2-12); NEUTROPHILS # (AUTO) 7.2 X10'3 (1.8-7.7); NEUTROPHILS % (AUTO) 93.9 % (42-75); PLATELET COUNT 80 X10'3 (140-440); RED CELL DISTRIBUTION WIDTH 13.4 % (11.5-14.5)
[2019-04-26 04:24] LABS: ALBUMIN 2.5 G/DL (3.4-5.0); ANION GAP 11 (8-16); BLOOD UREA NITROGEN 81 MG/DL (7-18); BUN/CREATININE RATIO 31.8 (6.6-38.0); CALCIUM 8.6 MG/DL (8.5-10.1); CHLORIDE 97 MMOL/L (99-107); CREATININE 2.55 MG/DL (0.40-0.90); GLUCOSE 275 MG/DL (70-104); POTASSIUM 4.8 MMOL/L (3.5-5.1); SODIUM 133 MMOL/L (135-145); eGFR 18 ML/MIN
--- NOTE | 2019-04-26 06:00 | NUR ---
Patient in room PCU 3025. I have received report from Deirdre and had the opportunity to ask questions and assume patient care.
[2019-04-26 07:00] VITALS: BP 145/48
[2019-04-26] MEDS: ipratropium/albuterol 3ml nebule NEB SCH ×4 (07:30→19:49)
[2019-04-26] MEDS: roflumilast 500mcg tablet PO SCH (07:55)
[2019-04-26] MEDS: pregabalin 75mg capsule PO SCH ×3 (07:56→20:40)
[2019-04-26] MEDS: metoclopramide 10mg tablet PO SCH ×4 (07:56→20:42)
[2019-04-26] MEDS: amLODIPine 5mg tablet PO SCH (07:56)
[2019-04-26] MEDS: methylPREDNISolone sod succ/PF 40mg inj. IV SCH ×2 (07:57→20:49)
[2019-04-26] MEDS: CefTRIAXone/D5W-Rocephin 1gm 50 ML IV SCH (07:57)
[2019-04-26] MEDS: sacubitril/valsartan 24mg-26mg tablet PO SCH (07:57)
[2019-04-26 08:17] LABS: LARGE PLATELETS FEW; PLATELET ESTIMATE DECREASED
[2019-04-26] MEDS: azithromycin 250mg tablet PO SCH (08:26)
[2019-04-26] MEDS: FLUoxetine 20mg capsule PO SCH (08:26)
[2019-04-26] MEDS: lactobacillus rhamnosus 10,000 MMU CELLS/CAPSULE PO SCH ×2 (08:26→20:42)
[2019-04-26] MEDS: oxyCODONE/APAP 10/325mg tablet PO PRN ×3 (08:28→20:38)
[2019-04-26] MEDS: pantoprazole 40mg Tablet.DR PO SCH (08:29)
[2019-04-26] MEDS: potassium chloride 10mEq ER tablet PO SCH (08:29)
[2019-04-26] MEDS: insulin Lispro (HumaLOG) vial - multi-dose SQ SCH ×3 (09:08→19:19)
--- NOTE | 2019-04-26 11:00 | NUR ---
Spoke with Dr. Thompson regarding reported poor urine output, fluid intake, reports of diarrhea and elevated BUN/CR levels. Patient stated she has diarrhea at home for which she takes immodium for it. ABT is being switched to oral only. CXR being ordered with an increase in the rate of IVF. Dr. Jose to consult today for kidney function. Patients urine output has been adequate for this shift thus far. Patient also ambulated with therapy and did better today than the prior day.
[2019-04-26] MEDS: nystatin 15 GM powder TP SCH ×2 (12:31→20:51)
[2019-04-26] MEDS: normal saline 1000ml 1,000 ML IV SCH ×2 (12:53→15:25)
[2019-04-26 15:00] VITALS: BP 139/60
[2019-04-26] MEDS: amox tr/potassium clavulanate 500mg/125mg TAB PO SCH (16:54)
[2019-04-26 18:30] VITALS: BP 113/54
--- NOTE | 2019-04-26 18:30 | NUR ---
Problems reprioritized. Patient report given, questions answered & plan of care reviewed with
--- NOTE | 2019-04-26 18:50 | NUR ---
Patient in room PCU 3025. I have received report from Vilma CERVANTES and had the opportunity to ask questions and assume patient care.
[2019-04-26] MEDS: benzonatate 100mg capsule PO PRN (20:39)
[2019-04-26] MEDS: gabapentin 300mg capsule PO SCH (20:41)
[2019-04-26] MEDS: Melatonin 3mg tablet PO SCH (20:41)
[2019-04-26] MEDS: atorvastatin 10mg tablet PO SCH (20:42)
[2019-04-26] MEDS: cloNIDine 0.1 mg tablet PO SCH (20:42)
[2019-04-26] MEDS: ROPINIRole 1mg tablet PO SCH (20:47)
[2019-04-26] MEDS: insulin glargine (Lantus) pen - multi-dose SQ SCH (22:16)
[2019-04-26 22:30] VITALS: BP 122/50
[2019-04-27 02:30] VITALS: BP 115/51
[2019-04-27] MEDS: normal saline 1000ml 1,000 ML IV SCH (05:15)
[2019-04-27 05:29] LABS: BASOPHILS % (AUTO) 0.1 % (0-1); EOSINOPHILS % (AUTO) 0 % (0-6); HEMOGLOBIN 10.1 g/dl (12.0-16.0); LYMPHOCYTES # (AUTO) 0.6 X10'3 (1.1-4.8); MEAN CORPUSCULAR HEMOGLOBIN 29.5 PG (27.0-31.0); MONOCYTES # (AUTO) 0.2 X10'3 (0-0.9); RED BLOOD COUNT 3.41 X10'6 (4.20-5.60)
[2019-04-27 05:32] LABS: HEMATOCRIT 29.4 % (35.0-45.0); LYMPHOCYTES % (AUTO) 6.8 % (21-51); MEAN CORPUSCULAR HGB CONC 34.2 g/dL (33.0-36.5); MEAN CORPUSCULAR VOLUME 86.1 FL (78-98); MEAN PLATELET VOLUME 10.9 FL (7.4-10.4); MONOCYTES % (AUTO) 1.7 % (2-12); NEUTROPHILS # (AUTO) 8.5 X10'3 (1.8-7.7); NEUTROPHILS % (AUTO) 91.4 % (42-75); PLATELET COUNT 110 X10'3 (140-440); RED CELL DISTRIBUTION WIDTH 13.5 % (11.5-14.5); WHITE BLOOD COUNT 9.3 X10'3 (4.5-11.0)
[2019-04-27 05:46] LABS: ALBUMIN 2.6 G/DL (3.4-5.0); ANION GAP 12 (8-16); BLOOD UREA NITROGEN 87 MG/DL (7-18); BUN/CREATININE RATIO 45.8 (6.6-38.0); CALCIUM 8.5 MG/DL (8.5-10.1); CHLORIDE 100 MMOL/L (99-107); GLUCOSE 241 MG/DL (70-104); POTASSIUM 4.8 MMOL/L (3.5-5.1); SODIUM 134 MMOL/L (135-145); TOTAL CARBON DIOXIDE 22.1 MMOL/L (24-32); eGFR 25 ML/MIN
--- NOTE | 2019-04-27 06:01 | NUR ---
Problems reprioritized. Patient report given, questions answered & plan of care reviewed with Vilma CERVANTES.
--- NOTE | 2019-04-27 06:03 | NUR ---
Patient in room PCU 3025. I have received report from Oscar and had the opportunity to ask questions and assume patient care.
[2019-04-27 06:15] LABS: PLATELET ESTIMATE DECREASED
[2019-04-27 06:16] LABS: GIANT PLATELET FEW; LARGE PLATELETS FEW
[2019-04-27 07:00] VITALS: BP 159/60
[2019-04-27] MEDS: nystatin 15 GM powder TP SCH ×2 (07:34→19:14)
[2019-04-27] MEDS: methylPREDNISolone sod succ/PF 40mg inj. IV SCH (07:34)
[2019-04-27] MEDS: amox tr/potassium clavulanate 500mg/125mg TAB PO SCH ×2 (07:34→17:24)
[2019-04-27] MEDS: FLUoxetine 20mg capsule PO SCH (07:34)
[2019-04-27] MEDS: amLODIPine 5mg tablet PO SCH (07:35)
[2019-04-27] MEDS: oxyCODONE/APAP 10/325mg tablet PO PRN ×3 (07:35→22:34)
[2019-04-27] MEDS: pantoprazole 40mg Tablet.DR PO SCH (07:35)
[2019-04-27] MEDS: lactobacillus rhamnosus 10,000 MMU CELLS/CAPSULE PO SCH ×2 (07:35→19:13)
[2019-04-27] MEDS: roflumilast 500mcg tablet PO SCH (07:35)
[2019-04-27] MEDS: metoclopramide 10mg tablet PO SCH (07:35)
[2019-04-27] MEDS: pregabalin 75mg capsule PO SCH ×3 (08:17→20:03)
[2019-04-27] MEDS: ipratropium/albuterol 3ml nebule NEB SCH ×4 (08:30→20:21)
[2019-04-27] MEDS: insulin Lispro (HumaLOG) vial - multi-dose SQ SCH ×3 (09:01→18:52)
[2019-04-27 11:00] VITALS: BP 137/52
[2019-04-27 12:44] LABS: TOTAL PROTEIN,URINE RANDOM 18.8 MG/DL
[2019-04-27 15:00] VITALS: BP 139/57
--- NOTE | 2019-04-27 16:41 | NUR ---
Initial: Pt admit w/ SOB DX community-acquired PNA, COPD, CHF, and acute renal failure per MD. Pt PO 75% avg meals PO does fluctuate but overall likely meeting needs. Good appetite given age. LBM 04/26. Na 134 receiving NS. Will continue to monitor. Rec: 1. continue heart healthy/carb controlled diet 2. monitor for ONS needs if PO declines 3. wt per rx Addendum: 04/27/19 at [address] Amended: Links added.
[2019-04-27 18:00] VITALS: BP 160/67
--- NOTE | 2019-04-27 18:00 | NUR ---
Patient in room PCU 3025. I have received report from Melida CERVANTES and had the opportunity to ask questions and assume patient care.
--- NOTE | 2019-04-27 18:31 | NUR ---
Problems reprioritized. Patient report given, questions answered & plan of care reviewed with Carolina.
[2019-04-27] MEDS: ROPINIRole 1mg tablet PO SCH (20:01)
[2019-04-27] MEDS: cloNIDine 0.1 mg tablet PO SCH (20:02)
[2019-04-27] MEDS: gabapentin 300mg capsule PO SCH (20:02)
[2019-04-27] MEDS: atorvastatin 10mg tablet PO SCH (20:03)
[2019-04-27] MEDS: Melatonin 3mg tablet PO SCH (20:03)
[2019-04-27] MEDS: insulin glargine (Lantus) pen - multi-dose SQ SCH (20:58)
[2019-04-27 22:00] VITALS: BP 132/54
[2019-04-28 02:00] VITALS: BP 124/53
[2019-04-28 05:22] LABS: BASOPHILS % (AUTO) 0.1 % (0-1); EOSINOPHILS % (AUTO) 0.1 % (0-6); HEMATOCRIT 27.3 % (35.0-45.0); HEMOGLOBIN 9.3 g/dl (12.0-16.0); LYMPHOCYTES # (AUTO) 1.4 X10'3 (1.1-4.8); LYMPHOCYTES % (AUTO) 14.2 % (21-51); MEAN CORPUSCULAR HEMOGLOBIN 29.7 PG (27.0-31.0); MEAN CORPUSCULAR VOLUME 87.4 FL (78-98); MEAN PLATELET VOLUME 10.4 FL (7.4-10.4); MONOCYTES # (AUTO) 0.9 X10'3 (0-0.9); MONOCYTES % (AUTO) 9.2 % (2-12); NEUTROPHILS # (AUTO) 7.3 X10'3 (1.8-7.7); NEUTROPHILS % (AUTO) 76.4 % (42-75); PLATELET COUNT 99 X10'3 (140-440); RED BLOOD COUNT 3.13 X10'6 (4.20-5.60); RED CELL DISTRIBUTION WIDTH 13.8 % (11.5-14.5); WHITE BLOOD COUNT 9.6 X10'3 (4.5-11.0)
[2019-04-28] MEDS: normal saline 1000ml 1,000 ML IV SCH (05:29)
[2019-04-28 05:33] LABS: ALBUMIN 2.4 G/DL (3.4-5.0); ANION GAP 8 (8-16); BLOOD UREA NITROGEN 74 MG/DL (7-18); BUN/CREATININE RATIO 45.7 (6.6-38.0); CALCIUM 8.5 MG/DL (8.5-10.1); CHLORIDE 107 MMOL/L (99-107); CREATININE 1.62 MG/DL (0.40-0.90); GLUCOSE 97 MG/DL (70-104); SODIUM 141 MMOL/L (135-145); TOTAL CARBON DIOXIDE 25.6 MMOL/L (24-32); eGFR 30 ML/MIN
--- NOTE | 2019-04-28 05:54 | NUR ---
END NOC NOTE Patient slept well all night, refused Q2 turns, turned once at 0300 per patient request. Anxious about discharge.
[2019-04-28 06:00] VITALS: BP 113/69
--- NOTE | 2019-04-28 06:19 | NUR ---
Patient in room PCU 3025. I have received report from BILLY Coleman and had the opportunity to ask questions and assume patient care.
--- NOTE | 2019-04-28 06:22 | NUR ---
Problems reprioritized. Patient report given, questions answered & plan of care reviewed with Flakito CERVANTES.
--- NOTE | 2019-04-28 06:35 | NUR ---
Pt c/o pain in back through both legs as well as neck, requesting Percocet. Medication administered per MD order. Next possible administration time written on patient's whiteboard.
[2019-04-28] MEDS: oxyCODONE/APAP 10/325mg tablet PO PRN ×2 (06:41→14:45)
[2019-04-28] MEDS: ipratropium/albuterol 3ml nebule NEB SCH ×3 (07:30→16:00)
[2019-04-28] MEDS: amLODIPine 5mg tablet PO SCH (08:29)
[2019-04-28] MEDS: lactobacillus rhamnosus 10,000 MMU CELLS/CAPSULE PO SCH (08:29)
[2019-04-28] MEDS: pantoprazole 40mg Tablet.DR PO SCH (08:29)
[2019-04-28] MEDS: pregabalin 75mg capsule PO SCH ×2 (08:30→13:08)
[2019-04-28] MEDS: amox tr/potassium clavulanate 500mg/125mg TAB PO SCH ×2 (08:30→17:35)
[2019-04-28] MEDS: roflumilast 500mcg tablet PO SCH (08:30)
[2019-04-28] MEDS: FLUoxetine 20mg capsule PO SCH (08:30)
[2019-04-28] MEDS: nystatin 15 GM powder TP SCH (08:33)
[2019-04-28] MEDS: insulin Lispro (HumaLOG) vial - multi-dose SQ SCH ×3 (08:38→13:20)
[2019-04-28 09:08] LABS: ANTISTREPTOLYSIN O AB 24.8 IU/mL (0.0-200.0)
[2019-04-28 11:00] VITALS: BP 123/53
[2019-04-28 11:36] VITALS: BP 123/53
--- NOTE | 2019-04-28 12:15 | NUR ---
Assessed FSBG, critically low 38. Pt is coherent, states that she feels hot, slightly diaphoretic. Oral dextrose shot administered per MD order, see eMAR. Will reassess in 15 minutes. 1230 Reassessed FSBG, pt currently eating. FSBG is 54. Pt states feeling a little better, but still hot. Pt unable to tolerate more PO dextrose, IV dextrose administered per order. Will reassess in 15 minutes. 1245 Reassessed FSBG, 103. Pt states feeling much better at this time. No longer diaphoretic.
[2019-04-28] MEDS ORDERED: LACT1CAP26 PO (12:37)
[2019-04-28] MEDS ORDERED: AMOX1TAB15 PO (12:37)
[2019-04-28] MEDS ORDERED: MELA3TAB64 PO (12:37)
[2019-04-28 15:00] VITALS: BP 156/64
--- NOTE | 2019-04-28 15:27 | NUR ---
I have reviewed and agree with all medications administered and interventions performed by [employer] Student Toni Farmer
[2019-04-28 17:04] LABS: ANTINUCLEAR ANTIBODIES Negative (Negative)
--- NOTE | 2019-04-28 17:30 | NUR ---
PAGER ID: [phone] MESSAGE: [id number] America Espinal is requesting some Imodium. V/Q scan is still awaiting results/reading by radiology. BILLY Fraga Ext [phone]
[2019-04-28] MEDS ORDERED: loperamide 2mg capsule PO ONE (17:35)
--- NOTE | 2019-04-28 17:45 | NUR ---
PAGER ID: [phone] MESSAGE: [id number] America Marquez: Scan came back low probability PE, so she is good for DC to my understanding? BILLY Fraga Ext [phone]
--- NOTE | 2019-04-28 18:00 | NUR ---
Patient in room PCU 3025. I have received report from Flakito CERVANTES and had the opportunity to ask questions and assume patient care.
--- NOTE | 2019-04-28 18:30 | NUR ---
Problems reprioritized. Patient report given, questions answered & plan of care reviewed with BILLY Coleman.
--- NOTE | 2019-04-28 18:53 | NUR ---
Message left for [facility] to call in meds with all info, left call back if they have any questions, patient resquested I leave a message for that pharmacy instead of calling meds into one that is still open.
--- NOTE | 2019-04-28 19:00 | NUR ---
DISCHARGED Patient discharged home with family member. All questions answered about discontinued medications, renal diet, laboratory values of kidney function, and the importance of making an appointment with primary physician with in the next 10 days. Discharge packet was also gone through and explained. All personal affects were taken home with the patient.
[2019-05-01 15:51] LABS: A/G RATIO 0.9 (0.7-1.7); ALBUMIN 2.5 g/dL (2.9-4.4); BETA GLOBULIN 0.9 g/dL (0.7-1.3); GAMMA GLOBULIN 0.9 g/dL (0.4-1.8); GLOBULIN, TOTAL 2.9 g/dL (2.2-3.9); M-SPIKE Not Observed g/dL (Not Observed); PROTEIN, TOTAL, SERUM 5.4 g/dL (6.0-8.5)
[2019-05-02 05:13] LABS: ALBUMIN, UR Note: % (.)
== END 2019-04-28 19:00 | disposition home health service (06) | DRG 291 ==
LOC: ER 12:00 → ED HOLD 14:15 → EDBEDREQ 14:19 → PCU 3S 15:49 → UNDODISIN 16:38
PROVIDERS: ADMIT Internal Medicine; ATTEND Family Medicine
PROC: CB121ZZ Planar Nuclear Medicine Imaging of Lungs and Bronchi using Technetium 99m (Tc-99m) (ICD-10-PCS; principal; 2019-04-28)
DX: I11.0 Hypertensive heart disease with heart failure (principal); J18.9 Pneumonia, unspecified organism; N17.9 Acute kidney failure, unspecified; J96.11 Chronic respiratory failure with hypoxia; J44.0 Chronic obstructive pulmonary disease with (acute) lower respiratory infection; I50.33 Acute on chronic diastolic (congestive) heart failure; E87.6 Hypokalemia; E78.5 Hyperlipidemia, unspecified; E11.40 Type 2 diabetes mellitus with diabetic neuropathy, unspecified; G47.00 Insomnia, unspecified; F32.9 Major depressive disorder, single episode, unspecified; G89.29 Other chronic pain; E11.21 Type 2 diabetes mellitus with diabetic nephropathy; R19.7 Diarrhea, unspecified; G25.1 Drug-induced tremor; T45.0X5A Adverse effect of antiallergic and antiemetic drugs, initial encounter; Z66 Do not resuscitate; Z87.891 Personal history of nicotine dependence; Z90.710 Acquired absence of both cervix and uterus; Z90.49 Acquired absence of other specified parts of digestive tract; Z79.4 Long term (current) use of insulin; Z88.7 Allergy status to serum and vaccine; Z88.8 Allergy status to other drugs, medicaments and biological substances; Z98.1 Arthrodesis status; Y92.89 Other specified places as the place of occurrence of the external cause
CPT/HCPCS: 36415; 71045; 78582; 80048; 80053; 81001; 82570; 82948; 83036; 83605; 83880; 84145; 84155; 84156; 84165; 84166; 84300; 84484; 85025; 85379; 85610; 85730; 86038; 86060; 87040; 87081; 87207; 93005; 93306; 94640; 94760; 96365; 96375; 97112; 97116; 97161; 97530; 99285; A9539; A9540; C9113; G0378; J0456; J0696; J1650; J1815; J1940; J2270; J2920; J7030; J8597

== ENCOUNTER 2020-02-01 09:35 | Emergency (ER) | payer MEDICARE, MEDICAID ==
[~2020-02-01] VITALS: Ht 162.6 cm; Wt 67.9 kg
[~2020-02-01 09:35] MED LIST changes: -BENZ-16 PO; +CLOP75TA35 PO; +FER325T PO; -GABA-769 PO; +HYDR-4069 PO; -HYDR25TA4 PO; +LACT1CAP26 PO; +LEVO25TA7 PO; +MELA3TAB39 PO; -METO-292 PO; +METO-395 PO; -MONT10TA24 PO; +MONT10TA26 PO; -POTA10CA44 PO; -ROFL500T7 PO; -ROPI1TAB4 PO; +ROPI1TAB6 PO
[2020-02-01] MEDS ORDERED: normal saline 1000ML IV soln IVB ONE (09:40)
[2020-02-01] MEDS ORDERED: LIDOcaine 2% 10ml TOPICAL JELLY (Urojet) TP ONE (09:40)
[2020-02-01 10:28] LABS: BASOPHILS # (AUTO) 0.1 X10'3 (0-0.2); EOSINOPHILS # (AUTO) 0.3 X10'3 (0-0.9); LYMPHOCYTES # (AUTO) 1.2 X10'3 (1.1-4.8); MONOCYTES # (AUTO) 0.3 X10'3 (0-0.9); NEUTROPHILS # (AUTO) 2.9 X10'3 (1.8-7.7); RED CELL DISTRIBUTION WIDTH 14.9 % (11.5-14.5)
[2020-02-01 10:29] LABS: BASOPHILS % (AUTO) 1.4 % (0-1); EOSINOPHILS % (AUTO) 5.3 % (0-6); HEMOGLOBIN 9.1 g/dl (12.0-16.0); LYMPHOCYTES % (AUTO) 25.4 % (21-51); MEAN CORPUSCULAR HEMOGLOBIN 28.6 PG (27.0-31.0); MEAN CORPUSCULAR HGB CONC 32.7 g/dL (33.0-36.5); MEAN CORPUSCULAR VOLUME 87.7 FL (78-98); MEAN PLATELET VOLUME 11.2 FL (7.4-10.4); MONOCYTES % (AUTO) 6.4 % (2-12); NEUTROPHILS % (AUTO) 61.5 % (42-75); RED BLOOD COUNT 3.19 X10'6 (4.20-5.60)
[2020-02-01 10:34] LABS: ALANINE AMINOTRANSFERASE 21 U/L (12-78); ALBUMIN 3.4 G/DL (3.4-5.0); ALKALINE PHOSPHATASE 122 IU/L (46-116); ANION GAP 9 (8-16); ASPARTATE AMINO TRANSFERASE 19 U/L (10-37); BILIRUBIN,TOTAL 0.4 MG/DL (0.1-1.0); BLOOD UREA NITROGEN 26 MG/DL (7-18); BUN/CREATININE RATIO 24.8 (6.6-38.0); CALCIUM 8.6 MG/DL (8.5-10.1); CHLORIDE 107 MMOL/L (99-107); CREATININE 1.05 MG/DL (0.40-0.90); GLUCOSE 103 MG/DL (70-104); POTASSIUM 3.8 MMOL/L (3.5-5.1); SODIUM 143 MMOL/L (135-145); TOTAL CARBON DIOXIDE 27.5 MMOL/L (24-32); TOTAL PROTEIN 6.8 G/DL (6.4-8.2); eGFR 50 ML/MIN
[2020-02-01 10:36] LABS: LARGE PLATELETS FEW; PLATELET COUNT 57 X10'3 (140-440); PLATELET ESTIMATE DECREASED
[2020-02-01 10:57] LABS: CLARITY,URINE CLEAR (Clear); COLOR,URINE YELLOW (Yellow); GLUCOSE, URINE NEGATIVE (Neg); KETONES,URINE NEGATIVE (Neg); LEUKOCYTE ESTERASE ,URINE NEGATIVE (Neg); NITRITES, URINE NEGATIVE (Neg); OCCULT BLOOD,URINE NEGATIVE (Neg); PROTEIN,URINE NEGATIVE (Neg); UROBILINOGEN,URINE 0.2 E.U/dL (0.2-1.0)
[2020-02-01 11:01] LABS: UA COLLECTION TYPE FOLEY CATH
--- NOTE | 2020-02-01 13:32 | NUR ---
Pt to CT scan via w/c with the [facility]. Pt's mai emptied prior to transport. Pt will return to the same ED room upon completion of MRI testing in approximately one hour.
--- NOTE | 2020-02-01 14:20 | NUR ---
Returned from MRI, results pending.
[2020-02-01 15:14] VITALS: BP 174/72
== END 2020-02-01 15:15 | disposition home or self-care (01) ==
LOC: ER 09:35
DX: E86.0 Dehydration (principal); R33.9 Retention of urine, unspecified; M79.605 Pain in left leg; M79.604 Pain in right leg; I25.10 Atherosclerotic heart disease of native coronary artery without angina pectoris; I50.9 Heart failure, unspecified; I11.0 Hypertensive heart disease with heart failure; J44.9 Chronic obstructive pulmonary disease, unspecified; G89.29 Other chronic pain; M19.90 Unspecified osteoarthritis, unspecified site; Z88.8 Allergy status to other drugs, medicaments and biological substances; Z79.4 Long term (current) use of insulin; Z79.899 Other long term (current) drug therapy; Z86.73 Personal history of transient ischemic attack (TIA), and cerebral infarction without residual deficits
CPT/HCPCS: 36415; 51701; 72148; 80053; 81003; 85025; 99285; J7030

== ENCOUNTER 2020-03-11 21:07 | Emergency (ER) | payer MEDICARE, MEDICAID ==
[~2020-03-11] VITALS: Ht 162.6 cm; Wt 77.2 kg
[2020-03-11] MEDS ORDERED: ASPI-1265 PO (21:25)
[2020-03-11] MEDS ORDERED: FERR-39 PO (21:30)
[2020-03-11] MEDS ORDERED: FURO-149 PO (21:32)
[2020-03-11] MEDS ORDERED: PER5325T PO (21:37)
[2020-03-11] MEDS ORDERED: POTA10TA19 PO (21:41)
[2020-03-11] MEDS ORDERED: MELA3TAB39 PO (21:45)
[2020-03-11] MEDS ORDERED: METO-467 PO (21:48)
[2020-03-11 21:49] LABS: BASOPHILS # (AUTO) 0.1 X10'3 (0-0.2); EOSINOPHILS # (AUTO) 0.4 X10'3 (0-0.9); HEMOGLOBIN 8.8 g/dl (12.0-16.0); MONOCYTES # (AUTO) 0.4 X10'3 (0-0.9)
[2020-03-11] MEDS ORDERED: ROFL500T7 PO (21:50)
[2020-03-11 21:51] LABS: ALANINE AMINOTRANSFERASE 11 U/L (12-78); ALBUMIN 3.3 G/DL (3.4-5.0); ALKALINE PHOSPHATASE 98 IU/L (46-116); ANION GAP 8 (8-16); ASPARTATE AMINO TRANSFERASE 15 U/L (10-37); BILIRUBIN,TOTAL 0.5 MG/DL (0.1-1.0); BLOOD UREA NITROGEN 18 MG/DL (7-18); BUN/CREATININE RATIO 13.4 (6.6-38.0); CALCIUM 8.6 MG/DL (8.5-10.1); CHLORIDE 106 MMOL/L (99-107); CREATININE 1.34 MG/DL (0.40-0.90); GLUCOSE 92 MG/DL (70-104); SODIUM 145 MMOL/L (135-145); TOTAL CARBON DIOXIDE 30.6 MMOL/L (24-32); TOTAL PROTEIN 6.6 G/DL (6.4-8.2); eGFR 38 ML/MIN
[2020-03-11 21:52] LABS: BASOPHILS % (AUTO) 1.4 % (0-1); EOSINOPHILS % (AUTO) 6.3 % (0-6); HEMATOCRIT 26.8 % (35.0-45.0); LYMPHOCYTES % (AUTO) 17.5 % (21-51); MEAN CORPUSCULAR HEMOGLOBIN 28.9 PG (27.0-31.0); MEAN CORPUSCULAR HGB CONC 32.8 g/dL (33.0-36.5); MEAN PLATELET VOLUME 10.8 FL (7.4-10.4); MONOCYTES % (AUTO) 6.3 % (2-12); NEUTROPHILS % (AUTO) 68.5 % (42-75); PLATELET COUNT 59 X10'3 (140-440); RED BLOOD COUNT 3.05 X10'6 (4.20-5.60); RED CELL DISTRIBUTION WIDTH 15.4 % (11.5-14.5); WHITE BLOOD COUNT 5.9 X10'3 (4.5-11.0)
[2020-03-11 21:54] LABS: POTASSIUM 2.9 MMOL/L (3.5-5.1)
[2020-03-11] MEDS ORDERED: furosemide 10 MG/1 ML 10ml inj IV ONE (22:10)
[2020-03-11] MEDS ORDERED: albuterol 2.5 MG/3 ML nebule NEB ONE (22:10)
[2020-03-11] MEDS ORDERED: potassium chloride 10mEq ER tablet PO STA (22:21)
[2020-03-11] MEDS ORDERED: methylPREDNISolone sod succ 125mg/2ml vial IV ONE (23:15)
[2020-03-12] MEDS ORDERED: PRED20TA PO (00:02)
[2020-03-12 01:10] VITALS: BP 172/60
== END 2020-03-12 01:12 | disposition home or self-care (01) ==
LOC: ER 21:07
DX: J44.9 Chronic obstructive pulmonary disease, unspecified (principal); I25.10 Atherosclerotic heart disease of native coronary artery without angina pectoris; I50.9 Heart failure, unspecified; I11.0 Hypertensive heart disease with heart failure; E11.9 Type 2 diabetes mellitus without complications; M19.90 Unspecified osteoarthritis, unspecified site; G89.29 Other chronic pain; Z86.73 Personal history of transient ischemic attack (TIA), and cerebral infarction without residual deficits; Z98.890 Other specified postprocedural states; Z88.7 Allergy status to serum and vaccine; Z88.8 Allergy status to other drugs, medicaments and biological substances; Z79.82 Long term (current) use of aspirin; Z79.899 Other long term (current) drug therapy
CPT/HCPCS: 71045; 80053; 83880; 84484; 85025; 93005; 94640; 96374; 96375; 99285; J1940; J2930; 94760